=== PATIENT | female | born 1975 | race Caucasian/White ===

== ENCOUNTER → 2019-06-03 08:19 | Outpatient (CLI) | payer BC | END | disposition home or self-care (01) | LOC: D.MRI 08:19 | PROVIDERS: ATTEND Nurse Practitioner Family | DX: I12.9 Hypertensive chronic kidney disease with stage 1 through stage 4 chronic kidney disease, or unspecified chronic kidney disease (principal); N18.3 Chronic kidney disease, stage 3 (moderate); E11.9 Type 2 diabetes mellitus without complications; F31.9 Bipolar disorder, unspecified; F33.9 Major depressive disorder, recurrent, unspecified; Q61.3 Polycystic kidney, unspecified; Q44.6 Cystic disease of liver; E28.2 Polycystic ovarian syndrome; Z68.23 Body mass index [BMI] 23.0-23.9, adult ==

== ENCOUNTER 2019-11-30 17:43 | Emergency (ER) | payer BC ==
[~2019-11-30] VITALS: Ht 165.1 cm; Wt 63.6 kg
[2019-11-30 17:59] VITALS: Ht 165.1 cm; Wt 63.6 kg
[2019-11-30 18:27] LABS: BASOPHILS 0.4 % (0-2); EOSINOPHILS 0.4 % (0-7); HEMATOCRIT 43.7 % (36.0-48.0); HEMOGLOBIN 15.9 g/dL (12-16); IMMATURE GRANULOCYTES 0.3 % (0-5); LYMPHOCYTES 14.8 % (15-50); MCH 34.8 pg (26.0-34.0); MCHC 36.4 g/dL (31.0-37.0); MCV 95.6 fL (80.0-100.0); MEAN PLATELET VOLUME 9.2 fL (7.4-10.4); MONOCYTES 9.2 % (2-11); NEUTROPHILS 74.9 % (40-80); PLATELET COUNT 310 10x3/uL (130-400); RBC 4.57 10x6/uL (4.00-5.40); RDW 14.3 % (11.5-14.5); WBC 13.4 10x3/uL (4.8-10.8)
[2019-11-30 18:50] LABS: INR 0.93 (0.85-1.17); PROTIME 12.4 SECONDS (11.6-15.0)
[2019-11-30 18:51] LABS: ANION GAP 13.8 mmol/L (8-16); APTT 41.5 SECONDS (22.8-39.4); CALCIUM 9.9 mg/dL (8.5-10.1); CARBON DIOXIDE 27.2 mmol/L (21.0-32.0); CREATININE - SERUM 1.5 mg/dL (0.6-1.3)
[2019-11-30 18:56] LABS: ALBUMIN 4.4 g/dL (3.4-5.0); BILIRUBIN - TOTAL 0.8 mg/dL (0.2-1.3); PROTEIN - SERUM 8.6 g/dL (6.4-8.2)
[2019-11-30 20:46] VITALS: BP 123/87
[2019-12-03 09:58] VITALS: Ht 165.1 cm; Wt 63.6 kg
== END 2019-11-30 21:19 | disposition home or self-care (01) ==
LOC: D.ER 17:43
PROVIDERS: Family Medicine
DX: E87.1 Hypo-osmolality and hyponatremia (principal); I10 Essential (primary) hypertension; Q44.6 Cystic disease of liver; Z72.0 Tobacco use; K21.9 Gastro-esophageal reflux disease without esophagitis; J45.909 Unspecified asthma, uncomplicated; R00.0 Tachycardia, unspecified

== ENCOUNTER 2019-12-03 07:58 | Outpatient (CLI) | payer BC ==
[~2019-12-03] VITALS: Ht 165.1 cm; Wt 63.6 kg
[~2019-12-03 07:58] MED LIST: ADVAIR 250-501 EAC1 INH; ATARAX 25 MG TA25 MG PO; CYCLOBENZAPRINE10 MG PO; ELIQUIS5 MG PO; FOLATE0.4 MG PO; GABAPENTIN100 MG PO; HYDROCHLOROTHIA25 MG PO; LISINOPRIL20 MG PO; LOVENOX60 MG/0.6 SC; NORVASC2.5 MG PO; POTASSIUM CHLO10 ME1 PO; PROTONIX40 MG PO; REQUIP0.25 MG PO; VENTOLIN HFA [SP8 GM INH; VITAMIN B-12; VITAMIN D3
[2019-12-03 08:52] LABS: BASOPHILS 0.7 % (0-2); EOSINOPHILS 1.7 % (0-7); HEMATOCRIT 39.7 % (36.0-48.0); HEMOGLOBIN 13.8 g/dL (12-16); IMMATURE GRANULOCYTES 0.4 % (0-5); LYMPHOCYTES 27.3 % (15-50); MCH 34.2 pg (26.0-34.0); MCHC 34.8 g/dL (31.0-37.0); MCV 98.5 fL (80.0-100.0); MEAN PLATELET VOLUME 9.1 fL (7.4-10.4); MONOCYTES 8.5 % (2-11); NEUTROPHILS 61.4 % (40-80); PLATELET COUNT 253 10x3/uL (130-400); RBC 4.03 10x6/uL (4.00-5.40); RDW 14.3 % (11.5-14.5); WBC 8.4 10x3/uL (4.8-10.8)
[2019-12-03 09:02] LABS: APTT 37.6 SECONDS (22.8-39.4); INR 0.92 (0.85-1.17); PROTIME 12.3 SECONDS (11.6-15.0)
[2019-12-03 09:05] LABS: ANION GAP 9.6 mmol/L (8-16); CALCIUM 8.9 mg/dL (8.5-10.1); CARBON DIOXIDE 30.9 mmol/L (21.0-32.0); CREATININE - SERUM 1.3 mg/dL (0.6-1.3); POTASSIUM - SERUM 4.5 mmol/L (3.5-5.1)
[2019-12-03 09:58] VITALS: BP 127/78; Ht 165.1 cm; Wt 63.6 kg
[2019-12-03 16:50] LABS: NEUT - BF 60 %
[2019-12-03 16:51] LABS: MACROPHAGES BF 16 %; MESOTHELIALS BF 1 %
--- NOTE | 2019-12-03 18:47 | NUR ---
1140-REC'D FROM SPECIALS. AWAKE AND ALERT. VSS. DRESSING TO RIGHT FLANK CDI. VSS. DENIES PAIN. REVIEWED DISCHARGE CRITERIA. CL IN EASY REACH
--- NOTE | 2019-12-03 18:48 | NUR ---
1320-NO CHANGES. VSS. DENIES PAIN. DRESSING CDI. IV INFILTRATED. REMOVED WITH CATH INTACT,DISPOSED INTO SHARPS. COVERED WITH GUAZE,COVERED WITH MEDIPORE TAPE. CL IN EASY REACH. DAUGHTER AT BEDSIDE. AWARE OF BRP
--- NOTE | 2019-12-03 18:48 | NUR ---
1220- REGULAR FOOD TRAY TO ROOM. DENIES PAIN. NO DISTRESS. PLEASANT
--- NOTE | 2019-12-03 18:49 | NUR ---
1430-NO CHANGED, PLEASANT.VSS. NO DISTRESS. DRESSING CDI
--- NOTE | 2019-12-03 18:50 | NUR ---
2921-NO CHANGES, VSS. DENIES PAIN. DRESSING CDI. CL IN EASY REACH. DAUGHTER AT BEDSIDE
--- NOTE | 2019-12-03 18:51 | NUR ---
1615-DRESSED. ESCORTED OUT VIA W/C WITH DAUGHTER DRIVING HOME
--- NOTE | 2019-12-03 18:51 | NUR ---
1600-PT HAS FOLLOW UP APPOINTMENT IN HAND FROM [employer]. REVIEWED POST OPERATIVE INSTRUCTIONS. VERBALIZED UNDERSTANDING.
== END 2019-12-03 16:15 | disposition home or self-care (01) ==
LOC: D.SP 07:58 → D.CT 11:00 → D.SP 11:00
PROVIDERS: ATTEND Specialist
DX: K76.89 Other specified diseases of liver (principal); J45.909 Unspecified asthma, uncomplicated; Z72.0 Tobacco use

== ENCOUNTER 2020-04-13 08:00 | Outpatient (CLI) | payer BC ==
[2019-12-03 09:58] VITALS: BMI 23.3
== END 2020-04-13 23:59 | disposition home or self-care (01) ==
LOC: D.MAMMO 08:00
PROVIDERS: ATTEND Family Medicine
DX: Z12.31 Encounter for screening mammogram for malignant neoplasm of breast (principal)